=== PATIENT | male | born 2000 | race Caucasian/White ===

== ENCOUNTER 2021-11-22 21:14 | Emergency (ER) | payer OTHER, SELFPAY ==
[2021-11-22 22:01] VITALS: BP 102/58; PULSE 111; RESP 18; TEMP 37.2; O2SAT 97
--- NOTE | 2021-11-22 22:22 | ED_ITS ---
HPI - URI/Sore Throat General Chief Complaint: Upper Respiratory Symptoms Stated Complaint: fever, sweats, chills, flu symptoms Source: patient Mode of arrival: ambulatory Limitations: no limitations History of Present Illness HPI Narrative: 21-year-old male presents with 2 days of upper respiratory symptoms, headaches, fevers, cough, body aches and diarrhea. Able tolerate p.o. fluids but states be very tired. MD elicited complaint: fever, cough and nasal congestion Onset (ago): day(s) (2) Consistency: constant Severity: moderate Description of mucous: clear Able to tolerate fluids by mouth: Yes Exacerbating factors: exertion Relieving factors: nothing Context: sick contacts Associated symptoms: fever, chills, myalgias, headache, nasal congestion, sore throat, cough, nausea, vomiting and diarrhea Treatments prior to arrival: acetaminophen Review of Systems Review of Systems: Constitutional: Positive Fever, positive Chills ENT/Mouth: No Ear Pain, No Hoarseness, No sore throat Eyes: No Eye Pain, No Swelling, No Redness, No Foreign Body Cardiovascular: No Chest Pain, No SOB Respiratory: Positive Cough, No Dyspnea Gastrointestinal: Positive Nausea, positive Vomiting, positive Diarrhea, positive abdominal Pain Genitourinary: No Dysuria, No Hematuria Musculoskeletal: positive joint pain, positive Myalgias, No Joint Swelling Skin: No Skin lacerations, No rash Neuro: No Weakness, No Numbness, No Paresthesias, No Loss of Consciousness, No Dizziness, No Headache Psych: No Anxiety/Panic, No Depression Heme/Lymph: no easy bruising, no Lymphadenopathy Endocrine: No Polyuria, No Polydipsia Yes all other systems are reviewed and are negative [facility] Past Medical History Attestation statement: The following information was validated with the patient. Source: old records reviewed Medical History No known health problems Social History Social History Advance Directives: No Physical Exam Vital Signs: Vital Signs: Last Vital Signs Temp 99.0 F 11/22/21 22:01 Pulse 111 H 11/22/21 22:01 Resp 18 11/22/21 22:01 BP 102/58 L 11/22/21 22:01 Pulse Ox 97 11/22/21 22:01 BMI result Body Mass Index 20.0 Appearance: Alert. Oriented X3. Moderate distress. Eyes: Pupils equal, round and reactive to light. ENT: Pharynx normal. Neck: Normal inspection. Neck supple. CVS: Tachycardic heart rate and rhythm. Pulses normal. Respiratory: No respiratory distress. Breath sounds normal. Abdomen: Soft and nontender. Skin: Skin warm and dry. Normal skin color. Normal skin turgor. Extremities: No lower extremity edema. Gait well-balanced well coordinated. Neuro: No motor deficit. No sensory deficit. Cranial nerves 2-12 intact. Course Course Course Narrative: 21-year-old male presents with upper respiratory symptoms, fever, cough, headache, body aches, diarrhea and abdominal pain. Patient tested positive for influenza A. Will discharge home with supportive measures. Patient verbalized understanding of and agrees to plan of care discharge home. Verbalizes understanding of signs and symptoms indicating need for emergent intervention. MDM - URI/Sore Throat Differential Diagnosis Differential diagnosis: Likely upper respiratory infection, viral infection, bronchitis, influenza and pharyngitis Medical Records Attestation: I reviewed the patient's medical records. Lab Data Attestation: I reviewed the patient's lab results. Result diagrams: 11/22/21 22:14 11/22/21 22:14 Labs: Lab Results 11/22/21 11/22/21 11/22/21 Range/Units 22:14 22:14 22:14 WBC 4.2 L (4.8-10.8) X10*3/uL RBC 4.40 L (4.60-5.80) X10*6/uL Hgb 14.0 (14.0-18.0) g/dl Hct 39.5 L (42.0-52.0) % MCV 89.8 (80.0-98.0) fL MCH 31.8 (27.0-33.0) pg MCHC 35.4 (31.0-36.0) g/dl RDW 11.6 (11.0-16.0) % Plt Count 94 L (160-400) X10*3/uL MPV 13.4 H (9.4-12.4) fL Immature Gran % (Auto) Cancelled Neut % (Auto) Cancelled Lymph % (Auto) Cancelled [place] % (Auto) Cancelled Eos % (Auto) Cancelled Baso % (Auto) Cancelled Lymph # (Auto) Cancelled [place] # (Auto) Cancelled Eos # (Auto) Cancelled Baso # (Auto) Cancelled Abs Immat Gran (auto) Cancelled Absolute Neuts (auto) Cancelled Absolute Nucleated RBC 0.000 (0.0-0.012) X10*3/uL Nucleated RBC % (auto) 0.0 (0.0-0.2) /100WBC Neutrophils % (Manual) 72 (45-73) % Band Neutrophils % 2 L (3-5) % Lymphocytes % (Manual) 19 L (20-40) % Monocytes % (Manual) 5 (2-11) % Eosinophils % (Manual) 1 (0-4) % Basophils % (Manual) 1 (0-2) % Abs Neuts (Manual) 3.1 (2.0-8.3) X10*3/uL Lymphocytes # (Manual) 0.8 L (1.2-4.9) X10*3/uL Monocytes # (Manual) 0.2 (0.1-1.2) X10*3/uL Platelet Estimate DECREASED (NORMAL) Plt Morphology Comment NORMAL RBC Morphology NORMAL Sodium (135-145) mmol/L Potassium (3.3-5.1) mmol/L Chloride (96-108) mmol/L Carbon Dioxide (22-29) mmol/L Anion Gap (12-20) BUN (9-16) mg/dL Creatinine (0.5-1.4) mg/dL Estim Creat Clear Calc Estimated GFR Random Glucose (60-115) mg/dL Calcium (8.4-10.2) mg/dL Total Bilirubin (0.0-1.0) mg/dL AST (5-37) U/L ALT (0-40) U/L Alkaline Phosphatase (39-117) U/L Total Protein (6.5-8.0) g/dL Albumin (3.5-5.0) g/dL COVID-19 (JOE) Negative (Negative) COVID-19 Clin Com See Note Influenza Type A (MADHU) Positive A (Negative) Influenza Type B (MADHU) Negative (Negative) Influenza A & B Note See Note 11/22/21 Range/Units 22:14 WBC (4.8-10.8) X10*3/uL RBC (4.60-5.80) X10*6/uL Hgb (14.0-18.0) g/dl Hct (42.0-52.0) % MCV (80.0-98.0) fL MCH (27.0-33.0) pg MCHC (31.0-36.0) g/dl RDW (11.0-16.0) % Plt Count (160-400) X10*3/uL MPV (9.4-12.4) fL Immature Gran % (Auto) Neut % (Auto) Lymph % (Auto) [place] % (Auto) Eos % (Auto) Baso % (Auto) Lymph # (Auto) [place] # (Auto) Eos # (Auto) Baso # (Auto) Abs Immat Gran (auto) Absolute Neuts (auto) Absolute Nucleated RBC (0.0-0.012) X10*3/uL Nucleated RBC % (auto) (0.0-0.2) /100WBC Neutrophils % (Manual) (45-73) % Band Neutrophils % (3-5) % Lymphocytes % (Manual) (20-40) % Monocytes % (Manual) (2-11) % Eosinophils % (Manual) (0-4) % Basophils % (Manual) (0-2) % Abs Neuts (Manual) (2.0-8.3) X10*3/uL Lymphocytes # (Manual) (1.2-4.9) X10*3/uL Monocytes # (Manual) (0.1-1.2) X10*3/uL Platelet Estimate (NORMAL) Plt Morphology Comment RBC Morphology Sodium 136 (135-145) mmol/L Potassium 3.7 (3.3-5.1) mmol/L Chloride 101 (96-108) mmol/L Carbon Dioxide 26 (22-29) mmol/L Anion Gap 13 (12-20) BUN 11 (9-16) mg/dL Creatinine 0.90 (0.5-1.4) mg/dL Estim Creat Clear Calc 104.9 Estimated GFR > 60 Random Glucose 113 (60-115) mg/dL Calcium 8.9 (8.4-10.2) mg/dL Total Bilirubin 0.4 (0.0-1.0) mg/dL AST 20 (5-37) U/L ALT 19 (0-40) U/L Alkaline Phosphatase 84 (39-117) U/L Total Protein 7.0 (6.5-8.0) g/dL Albumin 4.3 (3.5-5.0) g/dL COVID-19 (JOE) (Negative) COVID-19 Clin Com Influenza Type A (MADHU) (Negative) Influenza Type B (MADHU) (Negative) Influenza A & B Note Discharge Plan Discharge Clinical Impression: Influenza Patient Disposition: Home, Self-Care Instructions: Influenza (ED) Additional Instructions: Your evaluated for upper respiratory symptoms. Tested positive for influenza A. Alternate Tylenol 650 mg every 6 hours and Motrin 600 mg every 6 hours as needed for fever and pain management. Please write down what time he take these medications to prevent accidental overdose. Drink plenty of fluids. Thank you for choosing this emergency department for evaluation. Please follow-up with primary care physician as needed. Return to the emergency department for any new, concerning, or worsening symptoms. Stand Alone Forms: Work/School Release Interventions: ED Discharge Assessment Last Done: 11/22/21 23:39
[2021-11-22 22:28] LABS: Hematocrit 39.5 % (42.0-52.0); Mean Corpuscular HGB Conc 35.4 g/dl (31.0-36.0); Mean Corpuscular Hemoglobin 31.8 pg (27.0-33.0); Mean Corpuscular Volume 89.8 fL (80.0-98.0); Mean Platelet Volume 13.4 fL (9.4-12.4); Red Cell Distribution Width 11.6 % (11.0-16.0)
[2021-11-22 22:31] LABS: PLT ABN DIST 1; WBC ABN SCTR FOR CBC 1
[2021-11-22 22:39] LABS: Alanine Aminotransferase 19 U/L (0-40); Albumin Level 4.3 g/dL (3.5-5.0); Alkaline Phosphatase 84 U/L (39-117); Anion Gap 13 (12-20); Aspartate Amino Transferase 20 U/L (5-37); Bilirubin Total 0.4 mg/dL (0.0-1.0); Blood Urea Nitrogen 11 mg/dL (9-16); Calcium 8.9 mg/dL (8.4-10.2); Carbon Dioxide 26 mmol/L (22-29); Chloride 101 mmol/L (96-108); Creatinine Clr Calc Pharmacy 104.9; Estimated Glomerular Filt Rate > 60; Glucose Random 113 mg/dL (60-115); Potassium 3.7 mmol/L (3.3-5.1); Sodium 136 mmol/L (135-145)
[2021-11-22 22:42] LABS: COVID-19 Test Negative (Negative); IDNOW Serial# 16C4AD1C; Influenza A Positive (Negative); Influenza B2 Negative (Negative)
[2021-11-22 22:49] LABS: Platelet Count 94 X10*3/uL (160-400); White Blood Count 4.2 X10*3/uL (4.8-10.8)
[2021-11-22 22:54] LABS: Band Neutrophils Percent 2 % (3-5); Basophils Percent Manual 1 % (0-2); Eosinophils Percent Manual 1 % (0-4); Lymphocytes Absolute Manual 0.8 X10*3/uL (1.2-4.9); Lymphocytes Percent Manual 19 % (20-40); Monocytes Absolute Manual 0.2 X10*3/uL (0.1-1.2); Monocytes Percent Manual 5 % (2-11); Neutrophils Absolute Manual 3.1 X10*3/uL (2.0-8.3); Neutrophils Percent Manual 72 % (45-73); Platelet Estimate DECREASED (NORMAL); Platelet Morphology Comment NORMAL; RBC Morphology NORMAL
[2021-11-22 23:15] VITALS: BP 103/64; PULSE 96; RESP 17; TEMP 36.8; O2SAT 98
== END 2021-11-22 23:49 | disposition home or self-care (01) ==
PROVIDERS: Emergency Provider Student in an Organized Health Care Education/Training Program
DX: J10.1 Influenza due to other identified influenza virus with other respiratory manifestations (principal); Z20.822 Contact with and (suspected) exposure to COVID-19
CPT/HCPCS: 36415; 80053; 85007; 85027; 87502; 87635; 99283

== ENCOUNTER → 2022-12-15 11:04 | Outpatient (BNVA) | payer OTHER, SELFPAY | PROVIDERS: Visit Provider Physician Assistant | DX: S52.501A Unspecified fracture of the lower end of right radius, initial encounter for closed fracture (principal) | CPT/HCPCS: 99202 ==

== ENCOUNTER 2022-12-20 07:08 | Day surgery (SDC) | payer OTHER, SELFPAY ==
[2022-12-20] VITALS (7 sets, daily range): BP systolic 110–124; BP diastolic 67–74; PULSE 66–85; RESP 14–18; TEMP 36.4–36.6; O2SAT 98–99; BMI 20.4
--- NOTE | ~2022-12-20 | FL_ITS ---
EXAMINATION: XR FLUOROSCOPY WITH IMAGES CLINICAL INFORMATION: Fractures distal right radius and base ulnar styloid. COMPARISON: Outside radiographs 12/22/2022 ([facility], [place]). TECHNIQUE: Fluoroscopy Supervised By: Dr. Lou Zuniga. Fluoroscopy Time: 13 seconds. Cumulative Dose: 0.42 mGy. DAP: 0.025 Gycm2. Images: 8. FINDINGS: Distal radial fracture is reduced with volar side plate and screws. Hardware is intact. Fracture fragments in near-anatomic alignment. No dislocation dorsal bowing distal ulnar with comminuted fracture base ulnar styloid. FL/FL guidance in OR IMPRESSION: Status post reduction distal radial fracture. Hardware intact.
[2022-12-20] MEDS: Lactated Ringers 1,000 ML 50 ML IVCONT (08:15)
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
--- NOTE | 2022-12-20 10:00 | MHC.SHP ---
Pre-Procedural Eval Section A Date of Service: 12/20/22 The patient is an INPATIENT: No Changes since office visit: No Cold of Flu in the past 2 weeks, No New Medical Problems, No Changes in Medication and No Patient answered all questions The History & Physical has been completed within 30 days and I have reviewed it.: Yes Section B Chief Complaint: Unspecified fracture of the lower end of right rad Allergies: Allergies Allergy/AdvReac Type Severity Reaction Status Date / Time No Known Allergies Allergy Verified 12/20/22 07:47 Plan I have reviewed the history and physical and performed a pertinent physical examination on my patient. No changes have occurred unless specified. Time Spent With Patient Time: Total time managing care of this patient today ____ minutes.
[2022-12-20] MEDS: ondansetron HCL 4 MG/2 ML VIAL IVPUSH (12:15)
== END 2022-12-20 13:11 | disposition home or self-care (01) ==
PROVIDERS: Visit Provider Orthopaedic Surgery
PROC: (CPT 25608; principal; 2022-12-20 09:10)
DX: S52.501A Unspecified fracture of the lower end of right radius, initial encounter for closed fracture (principal); S60.811D Abrasion of right wrist, subsequent encounter; V27.49XA Other motorcycle driver injured in collision with fixed or stationary object in traffic accident, initial encounter; Y93.89 Activity, other specified; Y92.410 Unspecified street and highway as the place of occurrence of the external cause; Y99.8 Other external cause status; Z87.891 Personal history of nicotine dependence
CPT/HCPCS: 25608; C1713; C1769; J0171; J0690; J1100; J2250; J2370; J2405; J3010

== ENCOUNTER 2023-01-04 08:06 | Outpatient (REF) | payer OTHER, SELFPAY | END 2023-01-04 08:07 | disposition home or self-care (01) | LOC: HO.HOSX 08:06 | PROVIDERS: Visit Provider Orthopaedic Surgery | DX: Z13.89 Encounter for screening for other disorder (principal) ==

== ENCOUNTER 2023-01-05 07:14 | Outpatient (REF) | payer OTHER, SELFPAY ==
--- NOTE | ~2023-01-05 | XR_ITS ---
EXAMINATION: XR WRIST, RIGHT CLINICAL INFORMATION: Fracture COMPARISON: Previous x-ray and fluoroscopy December 2022 TECHNIQUE: PA, lateral, and oblique views of the right wrist. FINDINGS: Unchanged orthopedic hardware in the right distal radius. Comminuted intra-articular right distal radius fracture appears unchanged. Comminuted displaced ulnar styloid fracture appears unchanged. Dorsal position of the distal ulna with respect to the distal radius. This may be due to patient positioning. Mild soft tissue swelling of the wrist. XR/XR wrist RT min 3V IMPRESSION: ORIF of right distal radius fracture. Alignment unchanged. Minimally displaced ulnar styloid fracture. Dorsal position of the distal ulna with respect to the distal radius on the lateral view, question due to patient positioning.
== END 2023-01-05 07:15 | disposition home or self-care (01) ==
LOC: HO.HOSX 07:14
PROVIDERS: Visit Provider Physician Assistant
DX: S52.501D Unspecified fracture of the lower end of right radius, subsequent encounter for closed fracture with routine healing (principal); X58.XXXD Exposure to other specified factors, subsequent encounter
CPT/HCPCS: 29085; 73110

== ENCOUNTER 2023-02-15 08:47 | Outpatient (AMB) | payer OTHER, SELFPAY ==
--- NOTE | 2023-02-15 08:49 | A.OFFVIS_ITS ---
Intake Intake Visit Reasons: PO R Dis Rad ORIF 12/20/22 AR Intake Note: Juanjo, 22 year old right hand dominant male who presents today for his post op appointment for his right distal Rad ORIF,12/20/[address] Zuniga. Cast removed in office and xrays updated. Patient states he feels a little sore since cast was removed. Allergies No Known Allergies Allergy (Verified 02/15/23 08:50) HPI PO R Dis Rad ORIF 12/20/22 AR HPI Details Juanjo is a 22 year old right hand dominant Persian speaking man who presents S/P right distal radius ORIF, DOS: 12/20/22. He says he is doing well, he has some soreness since his cast was removed today. He has been wearing a cast since his last post-op appointment with JAMES Ortega on 01/05/23. 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 [facility] Medical History No known health problems Surgical History No pertinent past surgical history Social History Alcohol intake: current Patient Tobacco Use Status: Current everyday Tobacco user Tobacco use type: Cigarette Cigarettes Per Day: 15 Current occupational status: employed Current occupation: right hand dominant Review of Systems Const All systems reviewed & are unremarkable except as noted in HPI and below Physical Exam Const General: no acute distress and alert Orientation/consciousness: patient oriented x3 Neuro General: patient oriented x3 Extrem Other: The patient was alert oriented and in no acute distress The incision is healing well with no erythema drainage or evidence of infection. Steri-Strips removed today He can make a fist and extend all his digits Sensation normal to all digits His wrist is held in ~20 degrees pronation, and is stiff in that position He has not been working on pronosupination in his short-arm cast ~5 degrees wrist flexion & extension Good finger cross and APB muscle belly firing Fx non-tender some dorsal prominence of the distal ulna Sensation is intact Cap refill is brisk Radiographs: 3 views of the right wrist were taken and viewed by me today in clinic. They show a distal radius fracture with satisfactory fracture alignment and position of all implants. There is some evidence of interval bony healing some dorsal prominence of the distal ulna, but this may be secondary to positioning Psych Appearance: grossly normal Affect: normal affect Attitude: cooperative Assessment & Plan Assessment & Plan (1) Fracture of right distal radius: Code(s): S52.501A - Unspecified fracture of the lower end of right radius, initial encounter for closed fracture Plan Assessment & Plan: 1. Right distal radius fracture, S/P ORIF DOS: 12/20/22 The patient appears to be doing well post-operatively I educated him about the post-operative course He has been wearing a short arm cast for ~7 weeks post-operatively, and has stiffness in wrist ROM including prono-supination. 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 Orders: Orders XR wrist RT min 3V Today M25.531 - Pain in right wrist OT Evaluation and Treatment Today S52.501A - Unspecified fracture of the lower end of right radius, initial encounter for closed fracture Coding Level of Care Code Global (77372) Diagnoses Fracture of right distal radius S52.501A
== END 2023-02-15 09:43 | disposition home or self-care (01) ==
PROVIDERS: Visit Provider Orthopaedic Surgery
DX: S52.501A Unspecified fracture of the lower end of right radius, initial encounter for closed fracture (principal)
CPT/HCPCS: 99024

== ENCOUNTER 2023-02-15 11:33 | Outpatient (REF) | payer OTHER, SELFPAY ==
--- NOTE | ~2023-02-15 | XR_ITS ---
EXAMINATION: XR WRIST, RIGHT CLINICAL INFORMATION: Right wrist pain COMPARISON: 01/05/2023 TECHNIQUE: PA, lateral, and oblique views of the right wrist. FINDINGS: Plate-screw fixation of the distal radius is again seen. No evidence for hardware failure. The previously noted intra-articular fracture line is less discrete consistent with progressive interval healing. Chronic deformity of the ulnar styloid is again seen as well. Carpal bones appear intact. XR/XR wrist RT min 3V IMPRESSION: Progressive healing of the distal radial fracture status post plate and screw fixation. No evidence for hardware failure.
== END 2023-02-15 11:34 | disposition home or self-care (01) ==
LOC: HO.HOSX 11:33
PROVIDERS: Visit Provider Orthopaedic Surgery
DX: S52.501D Unspecified fracture of the lower end of right radius, subsequent encounter for closed fracture with routine healing (principal)
CPT/HCPCS: 73110

== ENCOUNTER 2023-03-08 08:39 | Outpatient (AMB) | payer OTHER, SELFPAY ==
--- NOTE | 2023-03-08 08:42 | MHC.OFFVIS ---
Intake Intake Visit Reasons: Postop-R Dis Rad ORIF 12/20/22 AR-ROM check Intake Note: Juanjo 22 yr old male presents today for his Post op visit for his Right Distal Radius ORIF 12/20/[address] Zuniga for a ROM check. States he has been been able to attend O.T due to insurance conflict but been working on his ROM at home with improvement. Allergies No Known Allergies Allergy (Verified 03/08/23 08:47) HPI Postop-R Dis Rad ORIF 12/20/22 AR-ROM check HPI Details Juanjo is a 22 year old right hand dominant speaking man who presents S/P right distal radius ORIF, DOS: 12/20/22. He says he is doing well, but has been unable to attend OT hand therapy due to insurance issues. He has been working on his ROM exercises at home and thinks he is improving. 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 ? [facility] Medical History No known health problems Surgical History No pertinent past surgical history Social History Alcohol intake: current Patient Tobacco Use Status: Current everyday Tobacco user Tobacco use type: Cigarette Cigarettes Per Day: 15 Current occupational status: employed Current occupation: right hand dominant Review of Systems Const All systems reviewed & are unremarkable except as noted in HPI and below Physical Exam Const General: no acute distress and alert Orientation/consciousness: patient oriented x3 Neuro General: patient oriented x3 Extrem Other: The patient was alert oriented and in no acute distress The incision is well-healed with no erythema drainage or evidence of infection. He can make a tight fist with good strength and extend all his digits Sensation normal to all digits Pronation: ~45 degrees Supination: ~5 degrees ~30 degrees wrist flexion ~30 degrees wrist extension Good finger cross and APB muscle belly firing Fx completely non-tender Some dorsal prominence of the ulna Cap refill is brisk Psych Appearance: grossly normal Affect: normal affect Attitude: cooperative Assessment & Plan Assessment & Plan (1) Fracture of right distal radius: Code(s): S52.501A - Unspecified fracture of the lower end of right radius, initial encounter for closed fracture Plan Assessment & Plan: 1. Right distal radius fracture, S/P ORIF DOS: 12/20/22 The patient appears to be doing well post-operatively I educated him about the post-operative course He had been wearing a short arm cast for ~7 weeks post-operatively, causing him to develop increased stiffness in wrist ROM, including prono-supination. I discussed activity modification, he is to use his right hand for more daily activities, including heavy activities I ordered OT hand therapy at his last appointment, but the patient says due to insurance issues he has not been able to attend while waiting for re-certification I placed a new order for OT hand therapy that will hopefully be approved for him to attend. He will continue to work on wrist ROM exercises at home, 20x daily minimum. 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 Coding Level of Care Code Global (28790) Diagnoses Fracture of right distal radius S52.501A
== END 2023-03-08 09:10 | disposition home or self-care (01) ==
PROVIDERS: Visit Provider Orthopaedic Surgery
DX: S52.501A Unspecified fracture of the lower end of right radius, initial encounter for closed fracture (principal)
CPT/HCPCS: 99024

== ENCOUNTER → 2023-03-08 08:39 | Outpatient (BNVA) | payer OTHER, SELFPAY | PROVIDERS: Visit Provider Orthopaedic Surgery ==

== ENCOUNTER 2023-04-12 08:49 | Outpatient (REF) | payer OTHER, SELFPAY | END 2023-04-12 08:50 | disposition home or self-care (01) | LOC: HO.HOSX 08:49 | PROVIDERS: Visit Provider Orthopaedic Surgery | DX: Z13.89 Encounter for screening for other disorder (principal) ==

== ENCOUNTER 2023-07-02 10:59 | Emergency (ER) | payer OTHER, SELFPAY ==
[2023-07-02 11:06] VITALS: BP 120/71; BP 128/78; PULSE 69; PULSE 80; RESP 14; TEMP 36.6; O2SAT 100; BMI 21.0
--- NOTE | 2023-07-02 11:52 | ED_ITS ---
HPI - Head Injury General Chief complaint: Head Injury Stated complaint: FOREHEAD LAC Time Seen by Provider: 07/02/23 11:04 Source: patient, RN notes reviewed and old records reviewed Mode of arrival: ambulatory History of Present Illness HPI Narrative: 23-year-old male with no significant past medical history presenting to the ED complaining of head injury and laceration to forehead s/p wrench back lashing and hitting him in face [employer] while working on quad. States was trying to tighten bowl and wrench loosened, hitting himself. Denies LOC or taking anticoagulation. Reports initial headache/nausea and lightheadedness, improved at present. Tetanus unknown. Denies injury to other area, vomiting, numbness/tingling, weakness Complaint: head injury Onset (ago): day(s) Related Data Previous Rx's Medication Instructions Recorded acetaminophen 325 mg tablet 650 mg (2 x 325 mg) PO Q4-6H PRN 01/05/23 fever or pain #240 tabs ibuprofen 800 mg tablet 800 mg PO Q8H pain 30 days #90 tabs 01/05/23 Allergies Allergy/AdvReac Type Severity Reaction Status Date / Time No Known Allergies Allergy Verified 03/08/23 08:47 Review of Systems Review of Systems: Constitutional: No Fever, No Chills ENT/Mouth: No Ear Pain, No Nasal Congestion, No Hoarseness, No sore throat, No Rhinorrhea, No Swallowing Difficulty Cardiovascular: No Chest Pain, No SOB Respiratory: No Cough, No Sputum Gastrointestinal: + Nausea, No Vomiting, No Diarrhea, No Constipation, No Abdominal pain Musculoskeletal: No joint pain, No Myalgias, No Joint Swelling Skin: No Skin Lesions, No rash Neuro: No Weakness, No Numbness, No Paresthesias, +head injury, +SAAB, +lightheaded (resolved) Yes all other systems are reviewed and are negative Constitutional: Constitutional: Reports as per HPI Neurologic: Denies Abnormal speech present [facility] Past Medical History Attestation statement: The following information was validated with the patient. Source: old records reviewed Medical History No known health problems Surgical History No pertinent past surgical history Social History Alcohol intake: current Patient Tobacco Use Status: Current everyday Tobacco user Tobacco use type: Cigarette Cigarettes Per Day: 15 Advance Directives: No Advance Directives Information Provided: No Current occupational status: employed Current occupation: right hand dominant Physical Exam Vital Signs: Vital Signs: Last Vital Signs Temp 97.8 F 07/02/23 11:06 Pulse 69 07/02/23 11:06 Resp 14 07/02/23 11:06 BP 120/71 07/02/23 11:06 Pulse Ox 100 07/02/23 11:06 O2 Del Method Room Air 07/02/23 11:06 BMI result Body Mass Index 21.0 Const: General: cooperative, healthy appearing and no acute distress Orie ntation/consciousness: patient oriented x3 Limitations: no limitations HEENT: Other: + superficial laceration 1.5 cm noted to right forehead, bleeding controlled. Small hematoma. No palpable step-off Head: No Westbrook's sign and No raccoon eyes Ears: hearing grossly normal bilaterally General nose exam: Normal external nose present Face and sinus: Yes normal facial exam Mouth: Normal oral and palatal mucosa present Throat: Yes posterior oropharynx normal, Yes tonsils normal and Yes uvula midline Eyes: General: appearance normal, both eyes and all related structures Pupils: Equal, round and reactive pupils present EOM: EOMs intact bilaterally Neck: Neck: Yes normal visual inspection and Yes no meningeal signs Resp: Effort & Inspection: normal respiratory effort and no respiratory distress Cardio: Rate: regular rate GI: Inspection: Yes normal to inspection Palpation (GI): Soft to palpation, nontender, no guarding and not rigid Skin: Rashes: no rashes Neuro: General: patient oriented x3, gait normal, tone normal, moves all extremities, no meningeal signs, no focal motor deficits and CN's II-XI intact bilaterally Cranial nerves: Yes CN's II-XII intact bilaterally and Yes Equal, round and reactive pupils present Cognition (Neuro): normal cognition Speech: No Abnormal speech present Gait exam (Neuro): Normal gait present Motor exam (neuro): 5/5 motor strength present throughout Extrem: General: Yes normal to inspection Medications Administered Discontinued Medications Generic Name Dose Route Start Last Admin Trade Name Freq PRN Reason Stop Dose Admin Diphtheria/Tetanus/Acell Pertussis 0.5 ml 07/02/23 11:48 07/02/23 12:47 Diphth,Pertus(Acell),Tet Adult 0.5 Ml Syringe IM 07/02/23 11:49 0.5 ml .ONCE ONE Administration Medical Decision Making Medical Decision Making [facility] Narrative: 23-year-old male with no significant past medical history presenting to the ED complaining of head injury and laceration to forehead s/p wrench back lashing and hitting him in face [employer] while working on quad. On exam vital signs stable, NAD, nontoxic appearing, physical exam as above. No focal neuro deficits. Superficial laceration noted as above needing Dermabond repair, no sutures required at this time. Low suspicion for ICH/fractures or SAH. [place] Head CT Rule negative. Plan: Update tetanus, Dermabond wound Results discussed with patient including worrisome signs and symptoms and strict return precautions, and when to return to the emergency department. They verbalized understanding and feel safe for discharge at this time. Differential Diagnosis Differential Diagnoses: The differential diagnosis associated with the presentation includes As above Independent Historian Clinical information obtained from an independent historian. History obtained from or confirmed by: EMS External Record Review External record reviewed: Inpatient record, Office record, Outpatient record, Prior outpatient labs, Prior outpatient radiology, Primary care record and Outside ED record Tests considered The following testing was considered but not selected: As above Prescription Management I considered prescription management with: Pain Medication Procedures Laceration Laceration 1: Site: face Size (cm): 1.5 Description: linear Pre-repair: wound explored Skin layer closed with: other (dermabond) Discharge Plan Discharge Clinical Impression: Head injury, Face lacerations Patient Disposition: Home, Self-Care Instructions: Laceration (DC), Head Injury (ED) Additional Instructions: Take Tylenol and Motrin for headache keep wound dry and clean, skin glue will follow up on its own, avoid picking at the area. If area begins to look infected, is red there is drainage of fever, constant or worsening headache, nausea/vomiting or weakness return to the ED Follow-up with your doctor Prescriptions: No Action ibuprofen 800 mg tablet 800 mg PO Q8H 30 Days Qty: 90 3RF acetaminophen 325 mg tablet 650 mg PO Q4-6H PRN (Reason: fever or pain) Qty: 240 0RF Referrals: Physician,None [Primary Care Provider] - Interventions: ED Discharge Assessment Last Done: 07/02/23 12:50 Discharge Date/Time: 07/02/23 12:50
[2023-07-02] MEDS: Diphth,Pertus(ACell),Tet Adult 0.5 ML SYRINGE IM (12:47)
--- NOTE | 2023-07-02 12:49 | PC.NURSE ---
provider applied dermabond to laceration, bleeding controlled. medicated per the OCT.
== END 2023-07-02 12:50 | disposition home or self-care (01) ==
PROVIDERS: Emergency Provider Emergency Medicine
DX: S01.81XA Laceration without foreign body of other part of head, initial encounter (principal); W22.8XXA Striking against or struck by other objects, initial encounter; Y93.89 Activity, other specified; Y92.9 Unspecified place or not applicable; Y99.9 Unspecified external cause status; F17.210 Nicotine dependence, cigarettes, uncomplicated
CPT/HCPCS: 12011; 90471; 90715; 99282; 99284

== ENCOUNTER 2023-09-23 22:32 | Emergency (ER) | payer OTHER, SELFPAY ==
--- NOTE | ~2023-09-23 | XR_ITS ---
EXAMINATION: XR WRIST, RIGHT CLINICAL INFORMATION: Status post fall. COMPARISON: Radiograph right wrist 02/15/2023. TECHNIQUE: PA, lateral, and oblique views of the right wrist. FINDINGS: Plate and screw fixation in the distal radius. No evidence of hardware fracture nor increased perihardware lucency. The previously noted intra-articular distal radial fracture line is less discrete consistent with progressive healing. Stable alignment of the distal radius. Unchanged displaced ulnar styloid fracture. No interval injuries. Diffuse nonspecific soft tissue swelling. XR/XR wrist RT min 3V IMPRESSION: 1. Progressive healing of the distal radial fracture. 2. Distal radial fixation plate and screw without evidence of complications. 3. Unchanged ulnar styloid fracture.
[2023-09-23 22:44] VITALS: BP 112/71; PULSE 73; RESP 16; TEMP 37.1; O2SAT 98; BMI 20.6
[2023-09-24 00:26] VITALS: BP 107/63; PULSE 66; RESP 16; TEMP 36.6; O2SAT 98
--- NOTE | 2023-09-24 00:50 | ED.EXTPRO ---
HPI - Extremity Problem General Chief complaint: Extremity Injury, Upper Stated complaint: fall and landed on right wrist Time Seen by Provider: 09/24/23 00:37 Source: patient, RN notes reviewed and old records reviewed Mode of arrival: ambulatory Limitations: no limitations History of Present Illness HPI Narrative: 23-year-old male presents for evaluation of right hand and wrist pain. Patient slipped on ice and landed on his right wrist. He reports fracturing the same wrist in March of last year having surgical fixation He is able to move all his fingers but complains of 6/10 pain Denies any other injuries Related Data Previous Rx's Medication Instructions Recorded acetaminophen 325 mg tablet 650 mg (2 x 325 mg) PO Q4-6H PRN 01/05/23 fever or pain #240 tabs ibuprofen 800 mg tablet 800 mg PO Q8H pain 30 days #90 tabs 01/05/23 Allergies Allergy/AdvReac Type Severity Reaction Status Date / Time No Known Allergies Allergy Verified 03/08/23 08:47 Review of Systems Musculoskeletal: Musculoskeletal: Reports arthralgias (Right wrist pain), Denies joint swelling and Reports limited range of motion PMFSH Past Medical History Medical History No known health problems Surgical History No pertinent past surgical history Social History Social History Alcohol intake: current Patient Tobacco Use Status: Current everyday Tobacco user Tobacco use type: Cigarette Cigarettes Per Day: 15 Advance Directives: No Advance Directives Information Provided: No Current occupational status: employed Current occupation: right hand dominant Physical Exam Vital Signs: Vital Signs: Last Vital Signs Temp 97.8 F 09/24/23 00:26 Pulse 66 09/24/23 00:26 Resp 16 09/24/23 00:26 BP 107/63 09/24/23 00:26 Pulse Ox 98 09/24/23 00:26 O2 Del Method Room Air 09/24/23 00:26 BMI result Body Mass Index 20.6 Const: General: healthy appearing, comfortable, no acute distress, alert and awake Nutritional Appearance: well nourished Orientation/consciousness: patient oriented x3 HEENT: Head: Yes normocephalic and Yes atraumatic Eyes: Eyelids: Yes eyelids normal Conjunctivae: conjunctivae normal Sclerae: sclerae normal Corneas: corneas normal Pupils: Equal, round and reactive pupils present EOM: EOMs intact bilaterally Skin: General skin exam: elasticity normal Neuro: General: patient oriented x3 Cranial nerves: Yes Equal, round and reactive pupils present and Yes Bilaterally intact EOM present Cognition (Neuro): normal cognition Extrem: Other: Patient has tenderness to the distal radius without significant edema. He has good range of motion to the right wrist and all fingers of the right hand. No elbow tenderness or edema. distal sensation and capillary refill intact Medical Decision Making Medical Decision Making MDM Narrative: 23-year-old male presents for evaluation of injury to the right wrist. X-rays ordered Differential Diagnosis Differential Diagnoses: The differential diagnosis associated with the presentation includes Wrist fracture Wrist sprain Contusion Hardware failure Independent Interpretation I performed an independent interpretation of an: Plain X-Ray (No obvious fractures. Previous hardware appreciated) Radiology Impression Discussion of test interpretation with radiology: I have reviewed the radiologist's reading. (No acute fractures) Discharge Plan Discharge Clinical Impression: Right wrist sprain Patient Disposition: Home, Self-Care Instructions: Wrist Sprain (ED) Additional Instructions: Your x-ray shows no evidence of new fractures. Your hardware appears to be in the correct place Use ibuprofen/Tylenol for pain. Ice the area every 4 hours for the next 2 days Prescriptions: No Action ibuprofen 800 mg tablet 800 mg PO Q8H 30 Days Qty: 90 3RF acetaminophen 325 mg tablet 650 mg PO Q4-6H PRN (Reason: fever or pain) Qty: 240 0RF Interventions: ED Discharge Assessment Last Done: 09/24/23 00:55
== END 2023-09-24 01:08 | disposition home or self-care (01) ==
PROVIDERS: Emergency Provider Internal Medicine
DX: S63.501A Unspecified sprain of right wrist, initial encounter (principal); W00.0XXA Fall on same level due to ice and snow, initial encounter; Y93.K1 Activity, walking an animal; Y92.414 Local residential or business street as the place of occurrence of the external cause; Y99.9 Unspecified external cause status
CPT/HCPCS: 73110; 99282; 99283

== ENCOUNTER 2024-04-04 16:53 | Emergency (ER) | payer OTHER, SELFPAY ==
[2024-04-04 17:21] VITALS: BP 130/83; PULSE 82; RESP 19; TEMP 37.1; O2SAT 98; BMI 19.6
--- NOTE | 2024-04-04 17:23 | ED.GENADULT ---
HPI - General Adult General Chief complaint: General Medical Stated complaint: possible COVID Source: patient Mode of arrival: ambulatory Limitations: no limitations History of Present Illness HPI narrative: 23 year old male no significant medical hx presents w/ nausea, vomiting, diarrhea, fatigue, malaise, myalgias, chills, fevers since tuesday. Thinks he may have COVID . No sick contacs. No cp, sob, blood in stool or vomit, changes in urinary or bowel habits. Related Data Previous Rx's ?Medication ?Instructions ?Recorded acetaminophen 325 mg tablet 650 mg (2 x 325 mg) PO Q4-6H PRN 01/05/23 fever or pain #240 tabs ibuprofen 800 mg tablet 800 mg PO Q8H pain 30 days #90 tabs 01/05/23 loperamide 2 mg capsule 2 mg PO Q6H PRN loose stool #20 04/04/24 caps ondansetron 4 mg disintegrating 4 mg PO Q6H PRN nausea and 04/04/24 tablet vomiting #14 tabs Allergies Allergy/AdvReac Type Severity Reaction Status Date / Time No Known Allergies Allergy Verified 04/04/24 17:24 Review of Systems Review of Systems: Yes all other systems are reviewed and are negative PMFSH Past Medical History Attestation statement: The following information was validated with the patient. Source: old records reviewed and nursing notes reviewed Medical History No known health problems Surgical History No pertinent past surgical history Social History Social History Alcohol intake: current Patient Tobacco Use Status: Current everyday Tobacco user Tobacco use type: Cigarette Cigarettes Per Day: 15 Do you have a plan to hurt others: No Plan Current occupational status: employed Current occupation: right hand dominant Physical Exam ED Vital Signs: Vital Signs - 24 hr 04/04/24 17:21 Temperature 98.7 F Pulse Rate 82 Respiratory Rate 19 Blood Pressure 130/83 Pulse Oximetry 98 Oxygen Delivery Method Room Air BMI result Body Mass Index 19.6 vss Appearance: Alert.? Oriented X3.? No acute distress.? Head: Normocephalic, atraumatic, no step-offs or deformities Eyes: Pupils equal, round and reactive to light.? CVS: Normal heart rate and rhythm.? Pulses normal.? Respiratory: No respiratory distress.? Breath sounds normal.? Abdomen: Soft and nontender.? Skin: Skin warm and dry.? Normal skin color.? Normal skin turgor.? Extremities: No lower extremity edema.? No calf ttp. 5/5 strength to bilateral upper and lower extremities Back: No midline tenderness, no C-spine tenderness, full range of motion, no CVA tenderness bilaterally Neuro: Oriented X 3.? No motor deficit.? No sensory deficit. CN 2-12 intact Course Course Course Narrative: This is an RME done by JAMES Puckett: Additional HPI, ROS, PE not included below will be deferred to primary provider. 23 year old male no significant medical hx presents w/ nausea, vomiting, diarrhea, fatigue, malaise, myalgias, chills, fevers since tuesday. Thinks he may have COVID . No sick contacs. No cp, sob, blood in stool or vomit, changes in urinary or bowel habits. Reevaluation(s) Reevaluation #1: Flu and COVID negative. Patient will be discharged home with supportive measures this is likely viral. No signs of acute distress stable vital signs on initial triage and at discharge. Educated patient on diagnosis and treatment plan, answered all question, patient verbalizes understanding. At this time patient will be discharged home, advised to return with new or worsening symptoms. Educated on worrisome signs and symptoms and when to return. At this time I feel comfortable discharge home. Time: 18:33 Medical Decision Making Medical Decision Making [facility] Narrative: 23 year old male presents w/ viral sx since tuesday, slowly improving but not gone. PE - benign History and physical exam concerning for flu versus COVID. Unlikely meningitis, encephalitis, PE, acute respiratory distress, pneumonia, ACS. Plan viral testing Differential Diagnosis Differential Diagnoses: The differential diagnosis associated with the presentation includes History and physical exam concerning for flu versus COVID. Unlikely meningitis, encephalitis, PE, acute respiratory distress, pneumonia, ACS. Admission/Observation Consideration of admission/observation: Escalation of care including admission/observation considered No indication Lab Data [facility] Lab Attestation statement: I reviewed the patient's lab results. Labs: Lab Results 04/04/24 Range/Units 17:56 COVID-19 ([facility]) Negative (Negative) COVID-19 Clin Com See Note Influenza Type A ([facility]) Negative (Negative) Influenza Type B ([facility]) Negative (Negative) Influenza A & B Note See Note Chronic Conditions Patient?s care impacted by: Other (denies ) Discharge Plan Discharge Clinical Impression: Viral illness Patient Disposition: Home, Self-Care Instructions: Viral Syndrome (ED) Additional Instructions: Take your medications as prescribed. If you were prescribed antibiotics today, it is important that you take your medication to their entirety, do not skip any doses, do not finish them early. Follow-up with your primary care provider this week. Return to the emergency department with new or worsening symptoms. Such as fevers, chills, chest pain, shortness of breath, nausea, vomiting, dizziness, headache, vision changes, lethargy In case of emergency call 911 You can take ibuprofen every 6 hours Tylenol every 4 as needed for pain or discomfort. You can go back to work as long as your fever free greater than 24 hours without ibuprofen or Tylenol. Drink plenty of fluids Zofran for nausea and vomiting has been sent to your pharmacy. Loperamide has been sent for diarrhea Prescriptions: New loperamide 2 mg capsule 2 mg PO Q6H PRN (Reason: loose stool) Qty: 20 0RF ondansetron 4 mg tablet,disintegrating 4 mg PO Q6H PRN (Reason: nausea and vomiting) Qty: 14 0RF No Action ibuprofen 800 mg tablet 800 mg PO Q8H 30 Days Qty: 90 3RF acetaminophen 325 mg tablet 650 mg PO Q4-6H PRN (Reason: fever or pain) Qty: 240 0RF Referrals: Physician,Unknown J [Primary Care Provider] - 2 days Stand Alone Forms: Work/School Release Print Language: Guyanese
[2024-04-04 18:26] LABS: COVID-19 Test Negative (Negative); IDNOW Serial# 08D9AD1C
[2024-04-04 18:28] LABS: IDNOW Serial# 152EDE1D; Influenza A Negative (Negative); Influenza B2 Negative (Negative)
[2024-04-04 18:43] VITALS: BP 130/83; PULSE 82; RESP 19; TEMP 37.1; O2SAT 98
== END 2024-04-04 18:44 | disposition home or self-care (01) ==
PROVIDERS: Physician Assistant; Emergency Provider Emergency Medicine
DX: B34.9 Viral infection, unspecified (principal); R11.2 Nausea with vomiting, unspecified; Z03.818 Encounter for observation for suspected exposure to other biological agents ruled out; F17.210 Nicotine dependence, cigarettes, uncomplicated
CPT/HCPCS: 87502; 87635; 99282; 99283

== ENCOUNTER 2024-04-22 19:16 | Emergency (ER) | payer OTHER, SELFPAY ==
--- NOTE | ~2024-04-22 | XR_ITS ---
EXAMINATION: XR LUMBOSACRAL SPINE CLINICAL INFORMATION: Pain radiating to left leg after lifting injury COMPARISON: None available. TECHNIQUE: Three views of the lumbosacral spine. FINDINGS: The vertebral bodies and posterior elements are normal. The disc spaces are preserved and the vertebral alignment is normal aside from minimal scoliosis convex to the left which could even be positional. The paraspinal soft tissues are normal. XR/XR lumbar spine 2-3V IMPRESSION: No evidence of an acute injury. Electronically signed by: Tommie Rivera MD 04/22/2024 08:38 PM EDT
[2024-04-22 19:27] VITALS: BP 94/69; PULSE 111; RESP 19; TEMP 36.9; O2SAT 100; BMI 18.8
--- NOTE | 2024-04-22 19:56 | ED.BACK ---
HPI - Back Pain/Injury General Chief Complaint: Extremity Problem Stated Complaint: hip pain into knee Time Seen by Provider: 04/22/24 20:10 Source: patient Mode of arrival: ambulatory Limitations: no limitations History of Present Illness HPI Narrative: Patient is a 24-year-old male who presents emergency department for evaluation reports that he was loading a truck a few weeks ago lifting something heavy and began experiencing pain primarily to eating to the leg into the knee. Pain has worsened. Has not tried any OTC. Denies bladder bowel dysfunction, denies saddle paresthesias. MD elicited complaint: back pain Related Data Previous Rx's ?Medication ?Instructions ?Recorded acetaminophen 325 mg tablet 650 mg (2 x 325 mg) PO Q4-6H PRN 01/05/23 fever or pain #240 tabs ibuprofen 800 mg tablet 800 mg PO Q8H pain 30 days #90 tabs 01/05/23 loperamide 2 mg capsule 2 mg PO Q6H PRN loose stool #20 04/04/24 caps ondansetron 4 mg disintegrating 4 mg PO Q6H PRN nausea and 04/04/24 tablet vomiting #14 tabs cyclobenzaprine 5 mg tablet 5 mg PO TID PRN muscle spasm #10 04/22/24 tabs Allergies Allergy/AdvReac Type Severity Reaction Status Date / Time No Known Allergies Allergy Verified 04/22/24 19:29 Review of Systems Review of Systems: Yes all other systems are reviewed and are negative PMFSH Past Medical History Attestation statement: The following information was validated with the patient. Source: old records reviewed Medical History No known health problems Surgical History No pertinent past surgical history Social History Social History Alcohol intake: current Patient Tobacco Use Status: Current everyday Tobacco user Tobacco use type: Cigarette Cigarettes Per Day: 15 Advance Directives: No Advance Directives Information Provided: No Do you have a plan to hurt others: No Plan Current occupational status: employed Current occupation: right hand dominant Physical Exam Vital Signs: Vital Signs: Last Vital Signs Temp 98.5 F 04/22/24 19:27 Pulse 111 H 04/22/24 19:27 Resp 19 04/22/24 19:27 BP 94/69 04/22/24 19:27 Pulse Ox 100 04/22/24 19:27 O2 Del Method Room Air 04/22/24 19:27 BMI result Body Mass Index 18.8 Appearance: Alert.?Oriented to person, place and time. No acute distress.?Normal affect. Eyes: Pupils equal, round and reactive to light.? ENT: Pharynx normal.?? Neck: Normal inspection.? Neck supple.?? CVS: Heart sounds normal. Normal heart rate and rhythm.? Pulses normal; bilateral radial pulses 2+, bilateral posterior tibial/dorsalis pedis pulses 2+.? Respiratory: No respiratory distress.? Lung sounds clear to auscultation bilaterally?? Abdomen: Soft and non-tender. Normoactive bowel sounds. No pulsatile mass.?? Skin: Skin warm and dry.? Normal skin color.? Normal skin turgor.?? Extremities: No lower extremity edema.? No calf ttp? Back: + mild left paraspinal muscular tenderness from lumbar region to coccyx. No CVA tenderness. No midline spinal tenderness, step-off's, or deformity. Full ROM intact in bilateral lower extremities. Straight leg test negative on right; Straight leg test positive on left. No rashes, lesions, areas of induration or fluctuance, or signs of infection noted., Neuro: Moves all extremities spontaneously. 5/5 strength in hip extension/flexion, abduction, adduction. Sensation to light touch intact bilaterally. Patellar and Achilles reflex 2+ bilaterally. No ataxia, gait normal and steady.. No focal neuro deficits. Medications Administered Discontinued Medications Generic Name Dose Route Start Last Admin Trade Name Freq PRN Reason Stop Dose Admin Ketorolac Tromethamine 15 mg 04/22/24 20:03 04/22/24 20:13 Ketorolac Tromethamine 15 Mg/Ml Vial IM 04/22/24 20:04 15 mg ONCE ONE Administration Medical Decision Making Medical Decision Making MDM Narrative: Patient is a 24-year-old male who presents emergency department for evaluation of lower back pain radiating to the leg as per HPI after a lifting injury. Pain is most consistent with lumbar radiculopathy, although cannot completely exclude herniated disc. On neurological exam there are no deficits. Not consistent with spinal fracture, spinal infection, epidural abscess, AAA, epidural abscess, or dissection. No high risk past medical history including incontinence, fever, immunosuppression, recent surgery or lumbar puncture, coagulopathy, significant trauma, recent unintentional weight loss, pulsatile mass, history of cancer, history of TB, history of IV drug use that would warrant MRI or CT. Not consistent with pyelonephritis, urinary tract infection, renal calculi, appendicitis, diverticulitis. On exam no concern for cauda equina syndrome. XR lumbar spine reveals __. Differential Diagnosis Differential Diagnoses: The differential diagnosis associated with the presentation includes ( see narrative above) Admission/Observation Consideration of admission/observation: Escalation of care including admission/observation considered ( see narrative above) Independent Interpretation I performed an independent interpretation of an: Plain X-Ray (No acute fracture) Radiology Impression Discussion of test interpretation with radiology: I have reviewed the radiologist's reading. Radiologist Impression: XR/XR lumbar spine 2-3V IMPRESSION: No evidence of an acute injury. Independent Historian Clinical information obtained from an independent historian. History obtained from or confirmed by: Spouse External Record Review External record reviewed: Outpatient record Prescription Management I considered prescription management with: Pain Medication Discharge Plan Discharge Clinical Impression: Acute left lumbar radiculopathy Patient Disposition: Home, Self-Care Instructions: Lumbar Radiculopathy (ED), Lower Back Exercises (ED) Additional Instructions: X-ray did not show any abnormality. You can take ibuprofen 200 mg, 3 tablets (600mg) every 6-8 hours as needed for pain, in addition to Tylenol 500 mg, 2 tablets (1,000mg) every 4-6 hours as needed for pain, but not to exceed 3 doses daily (3,000mg).? For pain that is unrelieved by either of the above you may trial cyclobenzaprine. This is muscle relaxant. It may make you drowsy. You should not drive, drink alcohol, or work while taking this medication. Engage in gentle stretching exercises of the lower back. Follow-up with your primary care doctor for persistent symptoms, they may consider a course of physical therapy and/or referral to back specialist/additional radiographic imaging. Return back to emergency department any new or worsening symptoms or concerns. Prescriptions: New cyclobenzaprine 5 mg tablet 5 mg PO TID PRN (Reason: muscle spasm) Qty: 10 0RF No Action loperamide 2 mg capsule 2 mg PO Q6H PRN (Reason: loose stool) Qty: 20 0RF ondansetron 4 mg tablet,disintegrating 4 mg PO Q6H PRN (Reason: nausea and vomiting) Qty: 14 0RF ibuprofen 800 mg tablet 800 mg PO Q8H 30 Days Qty: 90 3RF acetaminophen 325 mg tablet 650 mg PO Q4-6H PRN (Reason: fever or pain) Qty: 240 0RF Referrals: Physician,None [Primary Care Provider] - Print Language: Icelandic
[2024-04-22] MEDS: Ketorolac Tromethamine 15 MG/ML VIAL IM (20:13)
[2024-04-22 21:10] VITALS: BP 109/62; PULSE 90; RESP 18; TEMP 36.9; O2SAT 98
== END 2024-04-22 21:12 | disposition home or self-care (01) ==
PROVIDERS: Emergency Provider Emergency Medicine Emergency Medical Services
DX: M54.16 Radiculopathy, lumbar region (principal); F17.210 Nicotine dependence, cigarettes, uncomplicated; Z79.899 Other long term (current) drug therapy
CPT/HCPCS: 72100; 96372; 99283; 99284; J1885

== ENCOUNTER 2024-05-03 14:11 | Emergency (ER) | payer OTHER, SELFPAY ==
--- NOTE | ~2024-05-03 | CT_ITS ---
EXAMINATION: CT HEAD WITHOUT CONTRAST CLINICAL INFORMATION: right facial numbness since Tuesday COMPARISON: None. TECHNIQUE: Contiguous axial imaging was performed from the skull base to vertex without intravenous administration of contrast. Coronal and sagittal reformatted images are performed at the CT scanner. This CT examination was performed using dose optimization techniques as appropriate, variously including the following: *Automated exposure control *Adjustment of mA and/or kV according to patient size (this includes techniques or standardized protocols for targeted exams where dose is matched to indication/reason for exam; i.e. extremities or head) *Use of iterative reconstruction technique DLP: 646 mGy-cm. FINDINGS: There is no evidence of acute intracranial hemorrhage or territorial infarction. No abnormal mass-effect or midline shift is seen. [place] to white matter differentiation is well preserved. No extra-axial fluid collections are identified. The ventricles are normal in size. There is no abnormal attenuation within the brain parenchyma. There is no osseous abnormality. The mastoid air cells and visualized portions of the paranasal sinuses are well-aerated. CT/CT head/brain wo IV con IMPRESSION: No acute intracranial pathology. Electronically signed by: Med Delgadillo MD 05/03/2024 05:06 PM EDT
[2024-05-03 15:05] VITALS: BP 112/56; PULSE 95; RESP 16; TEMP 36.3; O2SAT 100; BMI 19.4
--- NOTE | 2024-05-03 15:14 | ED_ITS ---
HPI - Neuro Symptoms/Deficit General Chief Complaint: Stroke Stated Complaint: Facial numbness/drooping R side Time Seen by Provider: 05/03/24 20:03 Source: patient Limitations: language barrier History of Present Illness ED Provider: Ellen Matthew PA-C HPI Narrative: 24-year-old male presents to ED for right facial numbness, r watery right eye eyes, slight right facial droop x 1 week. Patient states since last week having migraine like headache on Tuesday and than started having right facial numbness, right watery right eyes, slight facial droop. Patient denies any loss of vision, slurred speech, or paralysis of extremities. Patient denies any recent trauma. Patient denies any with the family less than 50 dying from heart attack or stroke. Patient states he has been exposed to a tick, however he is unclear if it embedded in his skin, but he did find 1 in his clothing. Denies fevers. Related Data Previous Rx's ?Medication ?Instructions ?Recorded acetaminophen 325 mg tablet 650 mg (2 x 325 mg) PO Q4-6H PRN 01/05/23 fever or pain #240 tabs ibuprofen 800 mg tablet 800 mg PO Q8H pain 30 days #90 tabs 01/05/23 loperamide 2 mg capsule 2 mg PO Q6H PRN loose stool #20 04/04/24 caps ondansetron 4 mg disintegrating 4 mg PO Q6H PRN nausea and 04/04/24 tablet vomiting #14 tabs cyclobenzaprine 5 mg tablet 5 mg PO TID PRN muscle spasm #10 04/22/24 tabs doxycycline hyclate 100 mg capsule 100 mg PO BID 21 days #42 caps 05/03/24 Allergies Allergy/AdvReac Type Severity Reaction Status Date / Time No Known Allergies Allergy Verified 05/03/24 15:09 Review of Systems 2 Constitutional: Constitutional: Denies fever(s) and Reports headache(s) Eyes: Eyes: Denies loss of vision ENT: Reports headache(s) Cardiovascular: Cardiovascular: Denies chest pain and Denies dyspnea Respiratory: Respiratory: Denies dyspnea Gastrointestinal: Gastrointestinal: Denies vomiting Musculoskeletal: Musculoskeletal: Denies arthralgias and Denies joint swelling Neurologic: Denies Abnormal speech present, Reports headache(s), Denies loss of vision and Reports other (Facial droop) [facility] Past Medical History Attestation statement: The following information was validated with the patient. Medical History No known health problems Surgical History No pertinent past surgical history Social History Social History Alcohol intake: former Patient Tobacco Use Status: Current everyday Tobacco user Tobacco use type: Cigarette Cigarettes Per Day: 15 Smoked in Last 30 Days: Yes Use of substances other than those prescribed or required for medical reasons: Yes Substance Use Type: Marijuana Substance Use Frequency: Daily Advance Directives: No Advance Directives Information Provided: No Do you have a plan to hurt others: No Plan Current occupational status: employed Current occupation: right hand dominant Physical Exam 2 Vital Signs: Vital Signs: Last Vital Signs Temp 98.4 F 05/03/24 21:06 Pulse 76 05/03/24 21:06 Resp 18 05/03/24 21:06 BP 107/75 05/03/24 21:06 Pulse Ox 99 05/03/24 21:06 O2 Del Method Room Air 05/03/24 21:06 BMI result Body Mass Index 19.4 Const: Other: Alert, well in appearance Orientation/consciousness: patient oriented x3 Resp: Effort & Inspection: normal respiratory effort Cardio: Other: Normal peripheral perfusion Skin: Other: Warm dry no rash Neuro: Other: Right facial droop noted, General: patient oriented x3 and no focal motor deficits Speech: No Abnormal speech present Extrem: Other: Strength 5/5 bilateral upper and lower extremity, patient ambulates with a normal steady gait Psych: Other: Calm cooperative Course Course Course Narrative: RME: done by JAMES Awan. 24-year-old male presents to ED for right facial numbness, r watery right eye eyes, slight right facial droop, since Tuesday. Patient states since last week having migraine like headache on Tuesday and than started having right facial numbness, right watery right eyes, slight facial droop. Patient denies any loss of vision, slurred speech, or paralysis of extremities. Patient denies any recent trauma. Patient denies any with the family less than 50 dying from heart attack or stroke. On exam right forehead creasing less than left forehead crease.. Patient having symptoms since Tuesday. Patient is out of window for tPA or endovascular parotid intervention. We will send for head CT scan. Patient has crooked smile. Medications Administered Discontinued Medications Generic Name Dose Route Start Last Admin Trade Name Evon PRN Reason Stop Dose Admin Doxycycline Monohydrate 100 mg 05/03/24 20:27 05/03/24 20:56 Doxycycline Monohydrate 100 Mg Capsule PO 05/03/24 20:28 100 mg ONCE ONE Administration Medical Decision Making Medical Decision Making MDM Narrative: 24-year-old male presents to ED for right facial numbness, r watery right eye eyes, slight right facial droop x 1 week. Patient states since last week having migraine like headache on Tuesday and than started having right facial numbness, right watery right eyes, slight facial droop. Patient denies any loss of vision, slurred speech, or paralysis of extremities. Patient denies any recent trauma. Patient denies any with the family less than 50 dying from heart attack or stroke. Patient states he has been exposed to a tick, however he is unclear if it embedded in his skin, but he did find 1 in his clothing. Denies fevers. Problem: Tick exposure History: Per patient I have considered the following differential diagnoses: CVA, Pinzon's palsy Plan: The patient has Pinzon's palsy, he is otherwise neurologically intact, and he has a known exposure to tick. His assessment began in [facility], screening labs including a tick panel were obtained. We will empirically treat with doxycycline for 21 days. The patient is out of the window for steroid therapy, he has had symptoms for over a week. I have independently reviewed the following tests: Labs: No leukocytosis, not anemic, no electrolyte abnormality, tick panel pending CT brain:COMPARISON: None. TECHNIQUE: Contiguous axial imaging was performed from the skull base to vertex without intravenous administration of contrast. Coronal and sagittal reformatted images are performed at the CT scanner. This CT examination was performed using dose optimization techniques as appropriate, variously including the following: *Automated exposure control *Adjustment of mA and/or kV according to patient size (this includes techniques or standardized protocols for targeted exams where dose is matched to indication/reason for exam; i.e. extremities or head) *Use of iterative reconstruction technique DLP: 646 mGy-cm. FINDINGS: There is no evidence of acute intracranial hemorrhage or territorial infarction. No abnormal mass-effect or midline shift is seen. [place] to white matter differentiation is well preserved. No extra-axial fluid collections are identified. The ventricles are normal in size. There is no abnormal attenuation within the brain parenchyma. There is no osseous abnormality. The mastoid air cells and visualized portions of the paranasal sinuses are well-aerated. CT/CT head/brain wo IV con IMPRESSION: No acute intracranial pathology. Electronically signed by: Med Delgadillo MD 05/03/2024 05:06 PM EDT Lab Data 05/03/24 15:32 05/03/24 15:32 Labs: Lab Results 05/03/24 05/03/24 Range/Units 15:32 15:58 WBC 6.4 (4.8-10.8) X10*3/uL RBC 4.08 L (4.60-5.80) X10*6/uL Hgb 12.8 L (14.0-18.0) g/dl Hct 37.5 L (42.0-52.0) % MCV 91.9 (80.0-98.0) fL MCH 31.4 (27.0-33.0) pg MCHC 34.1 (31.0-36.0) g/dl RDW 12.1 (11.0-16.0) % Plt Count 166 D (160-400) X10*3/uL MPV 13.6 H (9.4-12.4) fL Immature Gran % (Auto) 0.3 (0.0-0.4) % Neut % (Auto) 57.7 (45-73) % Lymph % (Auto) 31.5 (20-40) % Gregg % (Auto) 7.7 (2-11) % Eos % (Auto) 2.2 (0-4) % Baso % (Auto) 0.6 (0-2) % Lymph # (Auto) 2.0 (1.2-4.9) X10*3/uL Gregg # (Auto) 0.5 (0.1-1.2) X10*3/uL Eos # (Auto) 0.1 (0.0-0.4) X10*3/uL Baso # (Auto) 0.0 (0.0-0.2) X10*3/uL Abs Immat Gran (auto) 0.02 (0.00-0.03) X10*3/uL Absolute Neuts (auto) 3.7 (2.0-8.3) x10*3/uL Absolute Nucleated RBC 0.000 (0.0-0.012) X10*3/uL Nucleated RBC % (auto) 0.0 (0.0-0.2) /100WBC Smear Tech's Comments VERIFIED PT 12.4 (10.9-12.4) SEC INR 1.1 (0.9-1.1) APTT 37.3 H (26.0-36.8) SEC Sodium 141 (135-145) mmol/L Potassium 3.9 (3.3-5.1) mmol/L Chloride 106 (96-108) mmol/L Carbon Dioxide 27 (22-29) mmol/L Anion Gap 12 (12-20) BUN 16 (9-16) mg/dL Creatinine 1.29 (0.5-1.4) mg/dL Estim Creat Clear Calc 66.8 Estimated GFR > 60 Random Glucose 61 (60-115) mg/dL Calcium 9.8 D (8.4-10.2) mg/dL Total Bilirubin 0.2 (0.0-1.0) mg/dL AST 14 (5-37) U/L ALT 15 (0-40) U/L Alkaline Phosphatase 109 (39-117) U/L Troponin I High Sens < 2.7 (<3.5-35.0) ng/L Total Protein 8.2 H (6.5-8.0) g/dL Albumin 4.1 (3.5-5.0) g/dL NIH Stroke Scale Internal: Initial- Upon Arrival Level of Consciousness: Alert Level of Consciousness Questions: Answers both questions correctly Level of Consciousness Commands: Performs both tasks correctly Best Gaze: Normal Visual: No visual loss Facial Palsy: Minor paralyis (Right) Motor Arm (Right): No drift Motor Arm (Left): No drift Motor Leg (Right): No drift Motor Leg (Left): No drift Limb Ataxia: Absent Sensory: Normal Best Language: No aphasia Dysarthia: Normal Extinction and Inattention: No abnormality Score: 1 Discharge Plan Discharge Clinical Impression: Facial paralysis/Elton palsy Patient Disposition: Home, Self-Care Instructions: Pinzon Palsy (ED) Additional Instructions: 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 See home care instructions. This is temporary facial paralysis, induced by likely exposure to a tick-borne illness, likely Lyme disease. A tick disease panel is pending, you can access your patient portal for results. We are empirically treating you with doxycycline. Take it as directed. You need to follow up with your primary care provider as well. Prescriptions: New doxycycline hyclate 100 mg capsule 100 mg PO BID 21 Days Qty: 42 0RF No Action cyclobenzaprine 5 mg tablet 5 mg PO TID PRN (Reason: muscle spasm) Qty: 10 0RF loperamide 2 mg capsule 2 mg PO Q6H PRN (Reason: loose stool) Qty: 20 0RF ondansetron 4 mg tablet,disintegrating 4 mg PO Q6H PRN (Reason: nausea and vomiting) Qty: 14 0RF ibuprofen 800 mg tablet 800 mg PO Q8H 30 Days Qty: 90 3RF acetaminophen 325 mg tablet 650 mg PO Q4-6H PRN (Reason: fever or pain) Qty: 240 0RF Stand Alone Forms: Work/School Release Interventions: ED Discharge Assessment Last Done: 05/03/24 21:06 Discharge Date/Time: 05/03/24 21:07 Print Language: Paraguayan
--- NOTE | 2024-05-03 15:20 | ECG_ITS ---
Test Reason : STROKE SYMPTOMS Blood Pressure : / mmHG Vent. Rate : 086 BPM Atrial Rate : 086 BPM P-R Int : 126 ms QRS Dur : 082 ms QT Int : 332 ms P-R-T Axes : 063 072 049 degrees QTc Int : 397 ms Normal sinus rhythm Normal ECG No previous ECGs available Referred By: Waldo Awan Electronically Signed By:VIOLETTE BARFIELD
--- NOTE | 2024-05-03 15:26 | PC.NURSE ---
Pt triage as stroke d/t neurological symptoms- uneven smile and facial paralysis. Symptoms on Tuesday though
[2024-05-03 15:56] LABS: Basophils Percent Auto 0.6 % (0-2); Hematocrit 37.5 % (42.0-52.0); Hemoglobin 12.8 g/dl (14.0-18.0); Imm Gran Abs Auto 0.02 X10*3/uL (0.00-0.03); Imm Gran Pct Auto 0.3 % (0.0-0.4); MANUAL DIFF FLAG SCAN; Mean Corpuscular HGB Conc 34.1 g/dl (31.0-36.0); SCAN SMEAR FLAG 1
[2024-05-03 15:58] LABS: Eosinophils Absolute Auto 0.1 X10*3/uL (0.0-0.4); Eosinophils Percent Auto 2.2 % (0-4); Lymphocytes Percent Auto 31.5 % (20-40); Mean Corpuscular Hemoglobin 31.4 pg (27.0-33.0); Mean Corpuscular Volume 91.9 fL (80.0-98.0); Mean Platelet Volume 13.6 fL (9.4-12.4); Monocytes Absolute Auto 0.5 X10*3/uL (0.1-1.2); Monocytes Percent Auto 7.7 % (2-11); Neutrophils Absolute Auto 3.7 x10*3/uL (2.0-8.3); Neutrophils Percent Auto 57.7 % (45-73); Platelet Count 166 X10*3/uL (160-400); Red Blood Count 4.08 X10*6/uL (4.60-5.80); Red Cell Distribution Width 12.1 % (11.0-16.0); White Blood Count 6.4 X10*3/uL (4.8-10.8)
[2024-05-03 16:03] LABS: Alanine Aminotransferase 15 U/L (0-40); Albumin Level 4.1 g/dL (3.5-5.0); Alkaline Phosphatase 109 U/L (39-117); Anion Gap 12 (12-20); Aspartate Amino Transferase 14 U/L (5-37); Bilirubin Total 0.2 mg/dL (0.0-1.0); Blood Urea Nitrogen 16 mg/dL (9-16); Calcium 9.8 mg/dL (8.4-10.2); Carbon Dioxide 27 mmol/L (22-29); Chloride 106 mmol/L (96-108); Creatinine Clr Calc Pharmacy 66.8; Estimated Glomerular Filt Rate > 60; Glucose Random 61 mg/dL (60-115); Potassium 3.9 mmol/L (3.3-5.1); Sodium 141 mmol/L (135-145); Total Protein 8.2 g/dL (6.5-8.0)
[2024-05-03 16:05] LABS: PLT ABN DIST 1
[2024-05-03 16:11] LABS: INTERNATIONAL NORM RATIO 1.1 (0.9-1.1); Prothrombin Time 12.4 SEC (10.9-12.4)
[2024-05-03 16:12] LABS: SLIDE REVIEW VERIFIED; Troponin-I High Sensitivity < 2.7 ng/L (<3.5-35.0)
[2024-05-03 16:14] LABS: Partial Thromboplastin Time 37.3 SEC (26.0-36.8)
[2024-05-03 20:00] VITALS: BP 107/75; PULSE 76; RESP 18; TEMP 36.9; O2SAT 99
[2024-05-03] MEDS: Doxycycline Monohydrate 100 MG CAPSULE PO (20:56)
[2024-05-03 21:06] VITALS: BP 107/75; PULSE 76; RESP 18; TEMP 36.9; O2SAT 99
[2024-05-04 11:38] LABS: Herpes Simplex Type 1 IgG 0.92 index; Herpes Simplex Type 2 IgG <0.90 index
[2024-05-04 14:12] LABS: Lyme Blot 7.73 index
[2024-05-05 14:18] LABS: A. Phagocytphilium DNA,RT-PCR NOT DETECTED (NOT DETECTED); Babesia Microti DNA, RT-PCR NOT DETECTED (NOT DETECTED); Borrelia Miyamotoi,DNA RT-PCR NOT DETECTED (NOT DETECTED); E.Chaffeensis DNA RT-PCR NOT DETECTED (NOT DETECTED); Lyme(Borrelia ssp)DNA RT-PCR NOT DETECTED (NOT DETECTED)
[2024-05-10 14:25] LABS: Lyme Abs Screen POSITIVE
[2024-05-10 14:31] LABS: 18 KD (IgG) Band REACTIVE; 23 KD (IgG) Band NON-REACTIVE; 23 KD (IgM) Band REACTIVE; 28 KD (IgG) Band NON-REACTIVE; 30 KD (IgG) Band NON-REACTIVE; 39 KD (IgM) Band REACTIVE; 39KD (IgG) Band REACTIVE; 41 KD (IgM) Band REACTIVE; 41KD (IgG) Band REACTIVE; 45 KD (IgG) Band REACTIVE; 58 KD (IgG) Band REACTIVE; 66 KD (IgG) Band NON-REACTIVE; 93 KD (IgG) Band NON-REACTIVE; Lyme IgG Blot Interp POSITIVE (NEGATIVE); Lyme IgM Blot Interp POSITIVE (NEGATIVE)
== END 2024-05-03 21:07 | disposition home or self-care (01) ==
PROVIDERS: Physician Assistant; Emergency Provider Internal Medicine
DX: G51.0 Bell's palsy (principal); R20.0 Anesthesia of skin; R51.9 Headache, unspecified; F17.210 Nicotine dependence, cigarettes, uncomplicated; R29.701 NIHSS score 1; F12.90 Cannabis use, unspecified, uncomplicated; Z79.899 Other long term (current) drug therapy
CPT/HCPCS: 36415; 70450; 80053; 84484; 85025; 85610; 85730; 86617; 86618; 86695; 86696; 87468; 87469; 87478; 87484; 87798; 93005; 99284; 99285